=== PATIENT | male | born 1990 | race African-American/Black ===

== ENCOUNTER 2023-09-11 00:25 | Emergency (ER) | payer OTHER ==
[2023-09-11 00:32] VITALS: BP 141/83; PULSE 100; RESP 20; TEMP 98.5; BMI 31.4
[2023-09-11] MEDS ORDERED: IBUPROFEN 600 MG TABLET (FP) PO ONE (01:31)
[2023-09-11] MEDS: IBUPROFEN 600 MG TABLET (FP) PO ONE (01:42)
== END 2023-09-11 02:58 | disposition home or self-care (01) ==
LOC: JER 00:25
DX: M25.561 Pain in right knee (principal); R00.0 Tachycardia, unspecified; X50.1XXA Overexertion from prolonged static or awkward postures, initial encounter
CPT/HCPCS: 73562-TC-RT-FY; 99283-25